=== PATIENT | male | born 1940 | race Caucasian/White ===

== ENCOUNTER 2018-04-12 08:40 | Emergency (ER) | payer OTHER ==
[2018-04-12 09:31] LABS: #Eosinphils 0.1 thou/uL (0.0-0.7); #Lymphocytes 0.9 thou/uL (1.20-3.40); #Monocytes 0.9 thou/uL (0.11-0.59); #Neutrophils 11.2 thou/uL (1.40-6.50); %Basophils 0.1 % (0.0-1.0); %Eosinophils 0.8 % (0.0-10.0); %Lymphocytes 6.9 % (21.0-51.0); %Neutrophils 85.2 % (42.0-75.0); Hemoglobin 12.2 g/dL (14.0-18.0); Mean Corpuscular Hemoglobin 31.2 pg (27.0-31.0); Mean Corpuscular Volume 97.5 fl (80.0-94.0); Mean Platelet Volume 6.1 fL (7.4-10.4); Platelet Count 473 thou/uL (130-400); RBC Distribution Width 13.3 % (11.5-14.5); Red Blood Cell (RBC) Count 3.93 mill/uL (4.70-6.10); White Blood Cell (WBC) Count 13.2 thou/uL (4.8-10.8)
[2018-04-12] MEDS ORDERED: Ketorolac Tromethamine 30 MG/ML VIAL ONE (09:41)
--- NOTE | 2018-04-12 09:48 | CT ---
HEAD CT WITHOUT CONTRAST: Date: 04-12-18 Comparison: None. History: Pain. Altered mental status. Technique: Serial axial CT imaging at 5 mm intervals from vertex through skull base without contrast. FINDINGS: The imaged paranasal sinuses and mastoid air cells are well aerated. There is no displaced calvarial fracture, intracranial hemorrhage, midline shift, or mass effect. IMPRESSION: No acute findings. POS: [facility]
--- NOTE | 2018-04-12 09:51 | RAD ---
FOUR VIEWS OF RIGHT KNEE: Date: 04-12-18 Comparison: None. History: Right knee pain. FINDINGS: There is severe medial compartment narrowing with subchondral sclerosis and osteophyte formation. The re is mild lateral compartment narrowing. There is no new joint effusion. There is mild patellofemora l joint space narrowing. There is no displaced fracture or evidence of dislocation seen. IMPRESSION: Prominent medial compartment degenerative change but no acute osseous abnormality seen. POS: [facility]
[2018-04-12 10:02] LABS: CKMB 5.5 ng/mL (0-6.6)
[2018-04-12 10:17] LABS: Bilirubin Negative (Negative); Blood, Urine Large (Negative); Clarity CLOUDY (Clear); Glucose, Urine (Dipstick) Negative (Negative); Leukocyte Negative (Negative); Nitrite Negative (Negative); Protein, Urine (Dipstick) 30 mg/dL (Neg-Trace); Specific Gravity, Urine 1.013 (1.002-1.036)
[2018-04-12 10:20] LABS: Bacteria/HPF None Seen HPF (None Seen); Hyaline Casts/LPF 0-3 HYALINE CAST LPF (0-3 Hyaline); Pathc Cast-AUWi Flag 0.29 (0-2.49); RBC/HPF GREATER THAN 50-TNTC HPF (0-3)
[2018-04-12 10:26] LABS: Renal Epithelial None Seen HPF (0-3); Transitional Epithelial NONE SEEN HPF (0-3)
[2018-04-12 10:27] LABS: Amphetamine Not Detected (NotDetected); Barbiturates Screen Not Detected (NotDetected); Benzodiazepine Screen Not Detected (NotDetected); Cocaine Metabolite Screen Not Detected (NotDetected); Medtox Control Line Valid? VALID (VALID); Medtox Reader # READER 1; Methadone Not Detected (NotDetected); Methamphetamine Not Detected (NotDetected); Opiate Screen Not Detected (NotDetected); Oxycodone Screen Not Detected (NotDetected); Phencyclidine (PCP) Not Detected (NotDetected); THC/Cannabinoid Screen Not Detected (NotDetected); Tricyclic Screen Not Detected (NotDetected)
[2018-04-12 10:28] LABS: Troponin I 0.025 ng/mL (< 0.028)
[2018-04-12 10:54] LABS: Body Fluid Source SYNOVIAL FLUID; Clarity Hazy (Clear); Tube # 1
[2018-04-12 10:55] LABS: BF Color Yellow; RBC Background Count 0.005; WBC Background Count 0.01
[2018-04-12 10:56] LABS: WBC/NonHematic-Auto 21000 /cumm
[2018-04-12 10:58] LABS: RBC Count-Automated 200000 /cumm
[2018-04-12 11:45] LABS: Albumin 2.7 g/dL (3.4-4.8)
[2018-04-12 11:46] LABS: Chloride 108 mmol/L (98-107); Potassium 3.9 mmol/L (3.5-5.1); Sodium 137 mmol/L (136-145)
[2018-04-12 11:47] LABS: Calcium 8.2 mg/dL (7.8-10.44); Glucose 97 mg/dL (83-110)
[2018-04-12 11:48] LABS: Globulin 3.3 g/dL (2.4-3.5)
[2018-04-12 11:49] LABS: Anion Gap 12 mmol/L (10-20); Bilirubin, Total 1.2 mg/dL (0.2-1.2); Carbon Dioxide 21 mmol/L (23-31)
[2018-04-12 11:50] LABS: Alkaline Phosphatase 194 U/L (40-150)
[2018-04-12 11:51] LABS: Calc. Creatinine Clearance 0 mL/min (70-130); Estimated GFR-MDRD Greater than 90
[2018-04-12 11:52] LABS: BUN (Urea Nitrogen) 13 mg/dL (8.4-25.7)
[2018-04-12 11:53] LABS: ALT (SGPT) 37 U/L (8-55); AST (SGOT) 47 U/L (5-34); Uric Acid 4.8 mg/dL (3.5-7.2)
[2018-04-12 12:19] LABS: BF Segmented Neutrophils 92 %; Cell Count Non Hematic 7 %; Lymphocytes 1 %
[2018-04-12] MEDS ORDERED: cefTRIAXone\\ROCEPHIN 1 GM VIAL ONE (12:31)
--- NOTE | 2018-04-12 13:01 | CON ---
DATE OF CONSULTATION: 04/12/2018 CHIEF PRESENTING COMPLAINT: Right knee pain. HISTORY OF PRESENT ILLNESS: Mr. Sanches is a 77-year-old incarcerated male who presented with right knee pain as high as 9/10 on admission. The patient was having difficulty with weightbearing. He said it has been present for 2 weeks. He was sent over because of continuing complaint of right knee pain. The patient noted some swelling. He had aspiration done by ER, I was consulted by Yoselyn Davies. PAST MEDICAL HISTORY: Osteoarthritis, coronary artery disease, congestive heart failure, hypertension. PAST SURGICAL HISTORY: Includes a pacemaker. CURRENT MEDICATIONS: Include aspirin, atorvastatin, carvedilol, Keflex, Lasix, Motrin, lisinopril and potassium chloride. ALLERGIES: No known drug allergies. SOCIAL HISTORY: The patient is currently incarcerated in [place], unknown duration for remainder of time. REVIEW OF SYSTEMS: Noncontributory. PHYSICAL EXAMINATION: VITAL SIGNS: Blood pressure 164/76, pulse 81, respiratory rate 18, 99% on room air. His pain was 9/10. The patient was 98.4. He was afebrile upon evaluation. GENERAL: Alert and oriented to person, time, unaware of place. EXTREMITIES: The patient's right knee shows effusion. He has got gross crepitus with range of motion. He has got some mild tenderness along the medial joint line. No erythema, no substantial warmth, no ecchymosis, no pain with axial load. The patient is neurovascularly intact distally to right lower extremity. LABORATORY AND X-RAY FINDINGS: His CRP 14. ESR 44, white blood cell count of 13. He has crystals that were negative. An aspiration showed 21,000 white cells predominantly, 92% segs. He had 200,000 red blood cells. He has a culture pending. Gram stain, no growth to date. IMPRESSION: 1. Right knee osteoarthritis. 2. Possible traumatic effusion, possible hemarthrosis. 3. Possible septic knee. ASSESSMENT AND PLAN: I would not operate at this time given the patient's exam. Treat him with antibiotics and await cultures. The patient will require medical management. Otherwise, follow up will be as needed, culture to be followed up. The patient will undergo an I&D as needed. DEE
== END 2018-04-12 13:11 | disposition home or self-care (01) ==
LOC: ERS 08:40
DX: R41.82 Altered mental status, unspecified (principal); M25.461 Effusion, right knee; N39.0 Urinary tract infection, site not specified; M19.90 Unspecified osteoarthritis, unspecified site; I25.10 Atherosclerotic heart disease of native coronary artery without angina pectoris; I11.0 Hypertensive heart disease with heart failure; I50.9 Heart failure, unspecified; Z79.82 Long term (current) use of aspirin; Z79.899 Other long term (current) drug therapy
CPT/HCPCS: 36415; 70450; 80053; 80306; 81003; 81015; 82553; 84484; 84550; 85025; 85060; 85652; 86140; 87070; 87086; 87205; 89051; 89060; 93005; 96374; 96375; J0696; J1885